=== PATIENT | female | born 1970 | race Caucasian/White ===

== ENCOUNTER 2021-11-16 13:35 | Emergency (ER) | payer OTHER ==
[~2021-11-16] VITALS: Ht 160 cm; Wt 68.0 kg
[2021-11-16 14:42] LABS: ABSOLUTE NEUTROPHILS 5.1 thou/uL (1.4-8.2); BASOPHILS 1.3 % (0.0-2.0); EOSINOPHILS 6.6 % (0.0-3.0); HEMATOCRIT 38.7 % (37.0-47.0); HEMOGLOBIN 12.4 gm/dL (12.0-15.0); LYMPHOCYTES 26.3 % (24.0-44.0); MCH 25.8 pg (26.0-34.0); MCHC 32.1 g/dL (28.0-37.0); MCV 80.6 fL (80.0-100.0); MONOCYTES 5.3 % (1.0-8.0); PLATELET COUNT 296 thou/uL (150-400); POLYS 60.5 % (36.0-66.0); RBC 4.81 mil/uL (4.20-5.00); WBC 8.5 thou/uL (4.0-11.0)
[2021-11-16 15:00] LABS: ANISOCYTOSIS 1+; CALCIUM 9.3 mg/dL (8.5-10.1); CREATININE 0.6 mg/dL (0.6-1.0); POTASSIUM 3.3 mmol/L (3.5-5.1)
[2021-11-16 15:05] LABS: ALBUMIN 4.1 g/dL (3.4-5.0); TOTAL BILIRUBIN 0.3 mg/dL (0.2-1.0); TOTAL PROTEIN 8.5 g/dL (6.4-8.2)
--- NOTE | 2021-11-16 15:16 | EKG ---
[place] [address] [facility] [place] [address] ELECTROCARDIOGRAM REPORT Name: TONIO CHAU Room #: REG STEVE Gutierrez#: [id number] Admission: 11/16/21 Attend Phys: Discharge: Date of : 70 Report #: [id number] 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
[2021-11-16 15:34] VITALS: BP 125/78
== END 2021-11-16 15:35 | disposition left against medical advice (07) ==
LOC: ER 13:35
PROVIDERS: Nurse Practitioner
DX: J45.901 Unspecified asthma with (acute) exacerbation (principal); Z20.822 Contact with and (suspected) exposure to COVID-19; Z88.1 Allergy status to other antibiotic agents; Z88.0 Allergy status to penicillin